=== PATIENT | female | born 1955 | race Caucasian/White ===

== ENCOUNTER → 2016-10-09 | Outpatient (CLI) | payer BC ==
--- NOTE | ~2016-10-09 | MY29 ---
[facility] A Service of [facility] RADIOLOGY TEXT RESULTS PATIENT: SCOTT BROWN LOCATION: [facility] : 53 UNIT #: [id number] AGE: [address]: Jean Bell MD SEX: F ORDER DR: [id number] [facility] [address]. [place], [place] [address] [id number] O MR#: [id number] Acc #: [id number] NAME: SCOTT BROWN : 1955 SEX: F STUDY DATE/TIME: 10/09/2016 9:27 UNIT: [facility] ROOM: STUDY DESCRIPTION: MY DAVIDSON SCREENING W/ CAD BILAT Attending Physician: Jean Bell M.D. Ordering Physician: Jean Bell M.D. Primary Care Physician: Jean Bell M.D. MEDICAL IMAGING REPORT This report is preliminary unless electronic signature is present EXAM Bilateral digital screening mammogram with CAD DATE 10/09/2016 HISTORY 61-year-old female with no personal or family history of breast cancer or current complaints. COMPARISON Bilateral screening mammogram 03/07/2010 and 02/13/[address] [facility]. FINDINGS CC and MLO views were obtained of each breast utilizing digital technique and reviewed with an FDA-approved CAD device. Scattered fibroglandular densities are present bilaterally, greatest in the upper outer quadrants. The parenchymal pattern is stable. No new or suspicious nodule, architectural distortion or clustered microcalcification is seen. No abnormal skin thickening or nipple retraction. IMPRESSION 1. BIRADS category 2. Benign findings. Routine bilateral screening mammogram is recommended in 1 year. Patients over the age of 40 are entered into a reminder system with target due date for the next mammogram. A result letter will also be sent to the patient. BIRADS: 2 Benign Finding [facility] A Service [facility] RADIOLOGY TEXT RESULTS PATIENT: SCOTT BROWN LOCATION: [facility] : 53 UNIT #: [id number] AGE: [address]: Jean Bell MD SEX: F ORDER DR: Dictated by... Sole Argueta M.D. THIS IS AN ELECTRONICALLY VERIFIED REPORT Sole Argueta M.D. at 10/16/2016 8:37 AM SONIA/brissa TD: 10/10/2016 17:12 JOB #: [id number] MEDICAL IMAGING REPORT Page 1 of 1 COPY
== END | disposition home or self-care (01) ==
LOC: CWCC 08:55
DX: Z12.31 Encounter for screening mammogram for malignant neoplasm of breast (principal)
CPT/HCPCS: G0202